=== PATIENT | male | born 1995 | race Caucasian/White ===

== ENCOUNTER 2017-07-08 12:59 | Emergency (ER) | payer OTHER | END 2017-07-08 14:30 | disposition home or self-care (01) | LOC: E/R 12:59 | DX: S89.92XA Unspecified injury of left lower leg, initial encounter (principal); X58.XXXA Exposure to other specified factors, initial encounter; Y92.322 Soccer field as the place of occurrence of the external cause | CPT/HCPCS: 73562; 99283-25 ==

== ENCOUNTER 2017-08-25 16:35 | Emergency (ER) | payer OTHER ==
[2017-08-25] MEDS: morphine 4 MG/ML VIAL IV (17:16)
[2017-08-25] MEDS: ONDANSETRON 4 MG INJ IV (17:16)
[2017-08-25] MEDS: SOD CHLORIDE 0.9% 1,000 ML IV (17:17)
[2017-08-25 17:31] LABS: ADD MAN DIFF? NO
[2017-08-25 17:35] LABS: WHITE BLOOD COUNT 11.4 10^3/ul (4.8-10.8)
[2017-08-25 17:35] LABS: BASOPHILS % 0.2 % (0.0-2.0); EOSINOPHILS % 0.4 % (0.0-7.0); HEMATOCRIT 43.2 % (42.0-52.0); HEMOGLOBIN 14.3 g/dl (14.0-18.0); LYMPHOCYTES # 1.9 10^3/ul (0.8-2.9); LYMPHOCYTES % 16.7 % (15.0-51.0); MEAN CORPUSCULAR HEMOGLOBIN 29.1 pg (29.0-33.0); MEAN CORPUSCULAR HGB CONC 33.1 g/dl (32.0-37.0); MEAN CORPUSCULAR VOLUME 87.8 fl (82.0-101.0); MEAN PLATELET VOLUME 10.3 fl (7.4-10.4); MONOCYTE # 0.6 10^3/ul (0.3-0.9); MONOCYTES % 4.8 % (0.0-11.0); NEUTROPHIL # 8.9 10^3/ul (1.6-7.5); NEUTROPHILS % 77.6 % (39.0-77.0); PLATELET COUNT 264 10^3/UL (140-415); RED BLOOD COUNT 4.92 10^6/ul (4.70-6.10); RED CELL DISTRIBUTION WIDTH 12.9 % (11.5-14.5)
[2017-08-25 17:43] LABS: ADD UMIC NO; UR ASCORBIC ACID 20 mg/dL (NEGATIVE); UR BILIRUBIN (Dip) NEGATIVE (NEGATIVE); UR BLOOD (Dip) NEGATIVE (NEGATIVE); UR CLARITY CLEAR (CLEAR); UR COLOR YELLOW (YELLOW); UR GLUCOSE (Dip) 1+ mg/dL (NEGATIVE); UR KETONES (Dip) 1+ mg/dL (NEGATIVE); UR LEUKOCYTE ESTERASE (Dip) NEGATIVE Leu/ul (NEGATIVE); UR NITRITE (Dip) NEGATIVE (NEGATIVE); UR SPECIFIC GRAVITY (Dip) 1.017 (1.003-1.030); UR TOTAL PROTEIN (Dip) NEGATIVE (NEGATIVE); UR UROBILINOGEN (Dip) NEGATIVE (NEGATIVE)
[2017-08-25 17:54] LABS: ALANINE AMINOTRANSFERASE 18 IU/L (13-69); ALBUMIN 4.9 g/dl (3.3-4.9); ALBUMIN/GLOBULIN RATIO 1.28; ALKALINE PHOSPHATASE 96 IU/L (42-121); ANION GAP 20 (8-16); ASPARTATE AMINO TRANSFERASE 25 IU/L (15-46); BILIRUBIN,INDIRECT 0.7 mg/dl (0-1.1); BILIRUBIN,TOTAL 0.7 mg/dl (0.2-1.3); BLOOD UREA NITROGEN 12 mg/dl (7-20); CALCIUM 9.5 mg/dl (8.4-10.2); CARBON DIOXIDE 29 mmol/L (21-31); CHLORIDE 98 mmol/L (97-110); CREATININE 0.68 mg/dl (0.61-1.24); GLUCOSE 141 mg/dl (70-220); LIPASE 64 U/L (23-300); POTASSIUM 3.6 mmol/L (3.5-5.1); SODIUM 143 mmol/L (135-144); TOTAL PROTEIN 8.7 g/dl (6.1-8.1)
[2017-08-25] MEDS: KETOROLAC 15 MG INJ IV (17:54)
[2017-08-25] MEDS: DOCUSATE SODIUM 100 MG CAP PO (18:33)
[2017-08-25] MEDS: morphine 2 MG INJ IV (18:33)
== END 2017-08-25 18:45 | disposition home or self-care (01) ==
LOC: FTE 16:35
DX: R10.32 Left lower quadrant pain (principal); R10.31 Right lower quadrant pain; R11.2 Nausea with vomiting, unspecified
CPT/HCPCS: 36415; 74176; 80053; 81003; 83690; 85025; 96374; 96375; 96376; 99285-25

== ENCOUNTER 2017-11-16 03:58 | Emergency (ER) | payer OTHER ==
[2017-11-16] MEDS: IBUPROFEN 800 MG TAB PO (06:39)
[2017-11-16] MEDS: CLINDAMYCIN 600 MG INJ IM (06:51)
== END 2017-11-16 07:19 | disposition home or self-care (01) ==
LOC: FTE 03:58
DX: J02.9 Acute pharyngitis, unspecified (principal)
CPT/HCPCS: 96372; 99284-25

== ENCOUNTER 2018-03-18 12:04 | Emergency (ER) | payer OTHER ==
[2018-03-18] MEDS: ACETAMINOPHEN 325 MG TAB PO (13:18)
== END 2018-03-18 14:58 | disposition left against medical advice (07) ==
LOC: FTE 12:04
DX: S09.90XA Unspecified injury of head, initial encounter (principal); R51 Headache; V00.311A Fall from snowboard, initial encounter; Y92.9 Unspecified place or not applicable
CPT/HCPCS: 70450; 99284-25